=== PATIENT | female | born 1930 | race Caucasian/White ===

== ENCOUNTER 2018-04-02 10:04 | Outpatient (CLI) | payer MEDICARE, BC ==
--- NOTE | 2018-04-02 10:54 | RAD ---
LEFT KNEE 2 VIEWS: HISTORY: Left knee pain. FINDINGS: No comparison. There is near-complete loss of joint space at the medial compartment. Prominent tric ompartmental osteophytosis. Chondrocalcinosis. A large amount of fluid distends the suprapatellar b ursa. Cortical remodeling of the medial tibial plateau. No acute fracture, dislocation or aggressiv e osseous erosions. Calcification over the arterial structures. IMPRESSION: 1. A large amount of joint fluid likely reflects an effusion related to severe degenerative changes including near-complete loss of joint space medial compartment. 2. Atherosclerosis. POS: BST
== END 2018-04-02 10:05 | disposition home or self-care (01) ==
LOC: SCSRAD 10:04
PROVIDERS: ATTEND Family Medicine
DX: M25.562 Pain in left knee (principal); I70.90 Unspecified atherosclerosis; M17.12 Unilateral primary osteoarthritis, left knee